=== PATIENT | male | born 1985 | race Caucasian/White ===

== ENCOUNTER 2022-11-09 11:52 | Emergency (ER) | payer OTHER ==
[~2022-11-09] VITALS: Ht 172.7 cm; Wt 165.0 kg
[2022-11-09 12:07] VITALS: BP 123/78
[2022-11-09] MEDS ORDERED: IBUPROFEN 600MG TABLET PO ONE (12:45)
[2022-11-09] MEDS ORDERED: IBUP-2029 MT (13:07)
[2022-11-09] MEDS ORDERED: HYDR-4001 MT (13:07)
== END 2022-11-09 13:43 | disposition home or self-care (01) ==
LOC: ER 11:52
DX: S82.62XA Displaced fracture of lateral malleolus of left fibula, initial encounter for closed fracture (principal); W21.02XA Struck by soccer ball, initial encounter; Y93.66 Activity, soccer; Y92.89 Other specified places as the place of occurrence of the external cause; Y99.8 Other external cause status
CPT/HCPCS: 29515; 73610; 99283; Z7610